=== PATIENT | male | born 1995 | race Two or more races ===

== ENCOUNTER 2018-06-07 06:44 | Emergency (ER) | payer SELFPAY ==
[~2018-06-07] VITALS: Ht 182.9 cm; Wt 104.3 kg
[2018-06-07] MEDS ORDERED: SODIUM CHLORIDE 0.9% 1,000 ML IVB ONE (07:19)
[2018-06-07] MEDS ORDERED: KETOROLAC TROMETH 30 MG/ML 1ML VIAL IV ONE (07:30)
[2018-06-07] MEDS ORDERED: METOCLOPRAMIDE HCL 5MG/ml INJ 2ml VIAL IV ONE (07:30)
[2018-06-07 07:31] LABS: Urine WBC None Seen /hpf (0 - 3)
[2018-06-07 07:36] LABS: Basophils # (auto) 0.1 uL; Basophils % (auto) 0.7 % (0.0-2.0); Eosinophils # (auto) 0.2 uL; Eosinophils % (auto) 2.8 % (0.0-7.0); Hematocrit 44.4 % (41.0-53.0); Hemoglobin 15.4 g/dL (13.5-17.5); Lymphocytes # (auto) 2.5 uL; Lymphocytes % (auto) 34.3 % (10.0-50.0); Mean Corpuscular Hemoglobin 28.6 pg (28.0-32.0); Mean Corpuscular Hgb Conc. 34.7 g/dL (32.0-36.0); Mean Corpuscular Volume 82.5 fL (80.0-100.0); Monocytes # (auto) 0.7 uL; Monocytes % (auto) 8.9 % (0.0-12.0); Neutrophils # (auto) 3.9 uL; Neutrophils % (auto) 53.3 % (37.0-80.0); Platelet Count (auto) 236 10^3/uL (140-450); Red Blood Cells 5.39 10^6/uL (4.5-5.90); Red Cell Distribution Width 13.2 % (11.8-14.3); White Blood Cell 7.4 10^3/uL (4.4-10.8)
[2018-06-07 07:56] LABS: Potassium 3.8 mmol/L (3.5-5.1); Urine Bacteria NONE SEEN /hpf (None Seen); Urine Blood 3+ /uL (Negative); Urine Mucus FEW (None Seen); Urine Specific Gravity 1.024 (1.001-1.035)
[2018-06-07 07:57] LABS: BUN/Creatinine Ratio 14.4; Magnesium 2.3 mg/dL (1.6-2.6)
[2018-06-07 09:49] VITALS: BP 145/100
== END 2018-06-07 09:52 | disposition home or self-care (01) ==
LOC: ER 06:49
DX: N20.0 Calculus of kidney (principal); N13.30 Unspecified hydronephrosis; Z90.89 Acquired absence of other organs
CPT/HCPCS: 36415; 74176; 80048; 81001; 83735; 85025; 96361; 96374; 96375; 99284; J1885; J2765; J7030